=== PATIENT | male | born 1990 | race Caucasian/White ===

== ENCOUNTER 2018-08-22 09:03 | Emergency (ER) | payer BC ==
[~2018-08-22] VITALS: Ht 190.5 cm; Wt 75.0 kg
[2018-08-22] MEDS ORDERED: CEPHALEXIN500 M1 PO (10:16)
[2018-08-22 10:26] VITALS: BP 97/56
== END 2018-08-22 10:25 | disposition home or self-care (01) ==
LOC: ED 09:03
DX: S62.604A Fracture of unspecified phalanx of right ring finger, initial encounter for closed fracture (principal); S61.214A Laceration without foreign body of right ring finger without damage to nail, initial encounter; Z23 Encounter for immunization; W23.1XXA Caught, crushed, jammed, or pinched between stationary objects, initial encounter
CPT/HCPCS: 90715

== ENCOUNTER 2020-10-20 16:45 | Emergency (ER) | payer BC ==
[~2020-10-20 16:45] MED LIST: CEPHALEXIN500 M1 PO
[2020-10-20 17:39] VITALS: BP 125/86
== END 2020-10-20 17:28 | disposition home or self-care (01) ==
LOC: ED 16:45
DX: S01.81XA Laceration without foreign body of other part of head, initial encounter (principal); W22.8XXA Striking against or struck by other objects, initial encounter; Y92.009 Unspecified place in unspecified non-institutional (private) residence as the place of occurrence of the external cause

== ENCOUNTER → 2021-03-15 | Outpatient (CLI) | payer BC | LOC: RAD 12:19 | DX: S92.912A Unspecified fracture of left toe(s), initial encounter for closed fracture (principal) ==